=== PATIENT | female | born 1960 | race Caucasian/White ===

== ENCOUNTER 2023-12-28 07:47 | Observation (INO) ==
[2023-12-28 08:15] LABS: ABS Lymphocytes 1.4 10^3/uL (1.0-4.8); ABS Monocytes 0.9 10^3/uL (0.0-0.9); ABS Nucleated RBC 0.02 10^3/ul; Hematocrit 45.7 % (35-45); Hemoglobin 15.3 g/dL (11.5-14.3); Lymphocyte % 8.1 %; Mean Corpuscular Hemoglobin 28.5 pg (27-33); Mean Corpuscular Hgb Conc 33.5 g/dL (31-36); Mean Corpuscular Volume 85.1 fL (80-97); Mean Platelet Volume 10.3 fL (7.5-11.2); Nucleated Red Blood Cells % 0.1 %/100WBC (0.0-0.8); Platelet Count 216 10^3/uL (150-450); Red Blood Count 5.37 10^6/uL (3.63-4.92); Red Cell Distribution Width 14.9 % (12-17); White Blood Count 17.4 10^3/uL (3.8-11.8)
[2023-12-28 08:30] LABS: INR 1.03 (0.83-1.13)
[2023-12-28 08:57] LABS: Albumin 4.7 g/dL (3.2-5.2); Albumin/Globulin Ratio 1.6 (1-3); Calcium 9.9 mg/dL (8.6-10.3); Creatinine, Serum 0.85 mg/dL (0.51-0.95); Potassium 3.9 mmol/L (3.5-5.0); Total Bilirubin 0.7 mg/dL (0.2-1.0); Total Protein 7.7 g/dL (6.4-8.9)
[2023-12-28] MEDS: Iodixanol (CONTRAST) 320 MG/ML 100 ML SDV IV ONE (09:02)
[2023-12-28] MEDS: HYDROmorphone 0.5 MG/0.5 ML SYRINGE IV ONE (09:03)
[2023-12-28] MEDS: Ondansetron 4 mg VIAL 2 MG/ML 2 ml VIAL IV ONE (09:04)
[2023-12-28] MEDS: NS 0.9% 1000 ml BAG 1,000 ML IV ONE (09:04)
[2023-12-28 09:44] LABS: High Sensitivity Troponin 1 Hr 4 pg/mL (<15)
[2023-12-28] MEDS: Magnesium Sulfate 2 gm BAG 2 GM/50 ML BAG IVPB ONE (11:04)
[2023-12-28] MEDS ORDERED: Ondansetron 4 mg VIAL 2 MG/ML 2 ml VIAL IV PRN (12:12)
[2023-12-28] MEDS: HYDROmorphone 0.5 MG/0.5 ML SYRINGE IV SLOW PU PRN (12:41)
[2023-12-28] MEDS: Pantoprazole VIAL 40 MG VIAL IV ONE (12:47)
[2023-12-28] MEDS: Ondansetron 4 mg VIAL 2 MG/ML 2 ml VIAL IV PRN (12:47)
[2023-12-28] MEDS ORDERED: Thiamine 100 MG/ML 2 ml VIAL 100 MG in NS 0.9% 50 ML 50 ML IV SCH (13:00)
[2023-12-28] MEDS ORDERED: Pantoprazole VIAL 40 MG VIAL IV SCH (13:00)
[2023-12-28] MEDS ORDERED: Lactated Ringers 1000 ml BAG 1,000 ML IV SCH (13:00)
[2023-12-28] MEDS ORDERED: Heparin 5000 UNITS/ML 1 mL VIAL SUBCUT SCH (14:00)
[2023-12-28] MEDS ORDERED: Bupivacaine 0.25% EPI 200,000 30 ML SDV ONE (14:06)
[2023-12-28] MEDS ORDERED: fentaNYL 100 mcg/2 ml 50 MCG/ML VIAL ONE (14:22)
[2023-12-28] MEDS ORDERED: Midazolam 2 mg/2 ml VIAL 1 mg/ml 2 ml VIAL (2 mg) ONE (14:22)
[2023-12-28] MEDS ORDERED: Lidocaine 2% PF 5 ML VIAL ONE (14:22)
[2023-12-28] MEDS ORDERED: Propofol 10 MG/ML 20 ML BTL ONE (14:22)
[2023-12-28] MEDS ORDERED: Rocuronium 50 mg VIAL 10 mg/ml 5 ml VIAL (50 mg) ONE (15:44)
[2023-12-28 18:20] VITALS: BP 133/75
[2023-12-29] MEDS ORDERED: Pantoprazole VIAL 40 MG VIAL IV SCH (12:00)
== END 2023-12-28 18:25 | disposition home or self-care (01) ==
LOC: ED 07:47 → EDHOLD 07:47 → AA 13:20
PROVIDERS: ADMIT Surgery; ATTEND Surgery